=== PATIENT | female | born 1990 | race Caucasian/White ===

== ENCOUNTER → 2016-07-17 | Outpatient (CLI) | payer OTHER ==
[~2016-07-17] MED LIST: AMLODIPINE BESY10 MG PO; ASPIRIN EC81 M1 PO; BENZONATATE PO; CARAFATE; DEPAKOTE; DEPAKOTE PO; DIFLUCAN PO; FLUOXETINE HCL20 M1 PO; FOLIC ACID1 MG PO; INDERAL20 MG DOB; INDERAL40 MG; INDOMETHACIN50 MG PO; KEPPRA PO; KEPPRA500 M2; KEPPRA500 M2 PO; KLONOPIN; KLONOPIN1 MG PO; LIPITOR40 MG DOB; MELOXICAM7.5 MG/5 M PO; NEXIUM 24HR20 MG PO; PEPCID; PHENERGAN; PHENERGAN SUPP25 M1 PR; PHENERGAN25 M1 DOB; PHENERGAN25 M1 PO; PHENERGAN25 MG PO; PROPRANOLOL PO; PROZAC; SYNTHROID; SYNTHROID PO; THORAZINE25 MG PO; TYLENOL #3 PO; VOLTAREN75 MG PO; ZOFRAN ODT4 MG PO
--- NOTE | ~2016-07-17 | EE ---
Unit #: [id number] #: [id number] Patient: KORIN [place] [id number] [address] [address] [id number] O MR#: [id number] NAME: KORIN MO : 1990 SEX: F STUDY DATE/TIME: 07/17/2016 UNIT: CEEG ROOM: STUDY DESCRIPTION: EEG Attending Physician: Alex Ortega II., M.D. Referring Physician: Alex Ortega II., M.D. Primary Care Physician: [facility] NEURODIAGNOSTICS REPORT REASON FOR STUDY Seizures. oneforty TECHNICAL INFORMATION Routine EEG performed using the standard International 10-20 system of electrode placement. Photic stimulation was performed and hyperventilation was performed. REPORT Throughout the entire study the best background rhythm was seen and is approximately 10 Hz. This rhythm is seen in both posterior head regions symmetrically and does attenuate to eye opening and closure. Hyperventilation was performed, which did not illicit any abnormal buildup. Photic stimulation was performed, which failed to reproduce any epileptiform abnormalities. A good photic driving response was seen. Patient became slightly drowsy; however, no sleep was recorded during the EEG. There was some mild movement artifact seen during the EEG in the frontal head regions. No asymmetry throughout the study. Throughout the entire study there were no electrographic seizures recorded, nor were there any epileptiform abnormalities seen. INTERPRETATION This is a normal awake EEG. A normal EEG does not rule out the possibility of a seizure disorder. Clinical correlation is advised. Dictated by... Alex Ortega II., M.D. GWS/nancy TD: 07/19/2016 10:03 JOB #: [id number] Unit #: [id number] #: [id number] Patient: KORIN MO NEURODIAGNOSTICS REPORT X NEURODIAGNOSTICS REPORT
== END | disposition home or self-care (01) ==
LOC: CEEG 09:50
DX: G40.909 Epilepsy, unspecified, not intractable, without status epilepticus (principal)
CPT/HCPCS: 95816

== ENCOUNTER 2016-08-02 16:44 | Emergency (ER) | payer OTHER ==
--- NOTE | ~2016-08-02 | CR2 ---
[facility] A Service of [facility] RADIOLOGY TEXT RESULTS PATIENT: KORIN MO LOCATION: SED : [birth year] UNIT #: [id number] AGE: [address]: HERNAN MARIE PA-C SEX: F ORDER DR: [id number] [address] [address] [id number] E MR#: [id number] Acc #: [id number] NAME: KORIN MO : 1990 SEX: F STUDY DATE/TIME: 08/02/2016 17:49 UNIT: SED ROOM: STUDY DESCRIPTION: CR Abdomen Acute Series Attending Physician: Hernan Marie Pa-C Ordering Physician: Isidoro Not Listed Primary Care Physician: [facility] MEDICAL IMAGING REPORT This report is preliminary unless electronic signature is present. EXAM Acute abdomen series, 08/02/2016. HISTORY Fever, vomiting, and left flank pain for 1 day. TECHNIQUE Upright view of the chest was obtained in addition to flat and upright views of the abdomen. COMPARISON Chest x-ray, 04/17/2016. FINDINGS Lung volumes remain low. Heart size is normal. Right-sided Port-A-Cath remains in good position. There is continued elevation of the right hemidiaphragm. The lungs are clear. Cholecystectomy clips are present. The mid to distal colon is predominantly gas-filled, but not significantly distended. There is no evidence of bowel obstruction or free air. Detail in the kidneys is largely obscured by the bowel. IMPRESSION 1. Low lung volumes, but no active disease in the chest. 2. Gas-filled nondistended colon loops are likely normal. No bowel obstruction or free air is seen. Dictated by... Duglas Arambula Jr., M.D. THIS IS AN ELECTRONICALLY VERIFIED REPORT [facility] A Service of [facility] RADIOLOGY TEXT RESULTS PATIENT: KORIN MO LOCATION: SED : [birth year] UNIT #: [id number] AGE: [address]: HERNAN MARIE PA-C SEX: F ORDER DR: Duglas Arambula Jr., M.D. at 08/02/2016 6:45 PM TYRA/merline TD: 08/02/2016 18:26 JOB #: [id number] MEDICAL IMAGING REPORT Page 1 of 1
[2016-08-02 17:15] LABS: AMPHETAMINE NEG (NEG); BARBITURATES NEG (NEG); BENZODIAZEPINES POS (NEG); COCAINE NEG (NEG); MARIJUANA NEG (NEG); OPIATES NEG (NEG); TRICYCLIC ANTIDEPRESSANTS POS (NEG); U METHADONE NEG (NEG)
[2016-08-02 17:50] LABS: BASOPHIL% 0.9 % (0-2.5); EOSINOPHIL# 0.1 X10e3 (0-0.7); EOSINOPHIL% 1.1 % (0.0-7.0); HEMATOCRIT 32.7 % (35.0-45.0); HEMOGLOBIN 10.8 gm/dL (12.0-16.0); LYMPHOCYTE% 19.9 % (17.0-45.0); MEAN CELL VOLUME 86.7 FL (83-96); MEAN CORPUSCULAR HEMOGLOBIN 28.6 PG (28-34); MEAN PLATELET VOLUME 7.7 FL (6.5-11.5); MONOCYTE# 0.6 X10e3 (0-1.0); MONOCYTE% 11.6 % (3.0-12.0); NEUTROPHIL# 3.3 X10e3 (1.5-7.1); NEUTROPHIL% 66.5 % (40-75); PLATELET COUNT 217 X10e3 (140-420); RED BLOOD COUNT 3.78 X10e (3.90-5.30); RED CELL DISTRIBUTION WIDTH 16.6 % (11.0-15.5)
[2016-08-02 17:57] LABS: DIFF IND NO
[2016-08-02 17:59] LABS: ALKALINE PHOSPHATASE 58 U/L (32-92); ALT (SGPT) 28 U/L (10-40); AST (SGOT) 29 U/L (10-42); BILIRUBIN, DIRECT <0.1 mg/dL (0.0-0.2); BILIRUBIN,INDIRECT 0.3 mg/dL (0.0-0.9); BILIRUBIN,TOTAL 0.4 mg/dL (0.2-2.0); BLOOD UREA NITROGEN 13 mg/dL (9-23); BUN/CREATININE RATIO 18.57; CALCIUM SERUM 8.1 mg/dL (8.4-10.2); CARBON DIOXIDE 23 mmol/L (22-31); CHLORIDE 107 mmol/L (100-111); CREATININE SERUM 0.7 mg/dL (0.6-1.4); GLOM FILT RATE Estimated 118.7 mL/min (>60); GLUCOSE FASTING 103 mg/dL (70-110); LIPASE 22 U/L (22-51); POTASSIUM 3.7 mmol/L (3.5-5.1); PROTEIN TOTAL SERUM 6.6 g/dL (6.0-8.3); SODIUM 134 mmol/L (135-145)
[2016-08-02 18:26] LABS: URINE SOURCE CLEAN CATCH
[2016-08-02 18:28] LABS: URINE APPEARANCE SL CLOUDY; URINE BILIRUBIN NEG (NEG); URINE BLOOD TRACE-INTACT (NEG); URINE COLOR YELLOW; URINE GLUCOSE NEG (NORM); URINE KETONE TRACE (NEG); URINE LEUKOCYTE ESTERASE NEG (NEG); URINE NITRATE NEG (NEG); URINE PROTEIN TRACE (NEG); URINE UROBILINOGEN 0.2 MG/DL (NORM)
[2016-08-02 18:29] LABS: MICRO INDICATED? YES
[2016-08-02 18:34] LABS: CULTURE INDICATED? YES; URINE BACTERIA 1+ (NEG); URINE MUCUS PRESENT; URINE SQUAMOUS EPITHELIAL CELL MODERATE /[HPF]; URINE TRANSITIONAL EPI CELLS FEW /[HPF]
[2016-08-02 18:37] LABS: INFLUENZA A NEG (NEG); INFLUENZA B NEG (NEG)
== END 2016-08-02 19:08 | disposition home or self-care (01) ==
LOC: SED 16:44
PROVIDERS: Emergency Medicine; Physician Assistant
DX: B34.9 Viral infection, unspecified (principal); R19.7 Diarrhea, unspecified; Z90.49 Acquired absence of other specified parts of digestive tract; Z88.8 Allergy status to other drugs, medicaments and biological substances; Z79.899 Other long term (current) drug therapy
CPT/HCPCS: 36415; 74022; 80048; 80076; 80307; 81003; 83690; 84703; 85025; 87086; 87651; 87804; 96361; 96374; 99284; J2405